=== PATIENT | female | born 1970 | race Caucasian/White ===

== ENCOUNTER 2024-08-08 09:32 | Emergency (ER) | payer OTHER, SELFPAY ==
[2024-08-08 09:58] VITALS: BP 99/56; PULSE 91; RESP 16; TEMP 36.4; O2SAT 96
--- NOTE | 2024-08-08 10:06 | PC.NURSE ---
in br to obtain ua spec.
--- NOTE | 2024-08-08 10:25 | ED.FEMALEGU ---
HPI - Female Genitourinary General Chief complaint: Urogenital-Female Stated complaint: Urine Irritation Time Seen by Provider: 08/08/24 10:26 Source: patient and RN notes reviewed Mode of arrival: ambulatory Limitations: no limitations History of Present Illness HPI Narrative: 54 year old female presents with concern for burning with urination, low back pain, nausea, cloudy urine, headache. She reports 4 days of symptoms. MD elicited complaint: UTI Related Data Home Medications Medication Instructions Recorded Confirmed Vitamin D 08/08/24 bupropion HCl 150 mg tablet,12 hr mg PO 08/08/24 sustained-release lisinopril 10 tablet 08/08/24 mg-hydrochlorothiazide 12.5 mg tablet mecobalamin (vitamin B12) 08/08/24 semaglutide 0.25 mg or 0.5 mg (2 mg subcut 08/08/24 mg/3 mL) subcutaneous pen injector (Ozempic) Allergies Allergy/AdvReac Type Severity Reaction Status Date / Time amlodipine Allergy Swelling Verified 08/08/24 10:36 Review of Systems Review of Systems: CONSTITUTIONAL: Reports malaise. Denies chills, sweats, or fever. CARDIOVASCULAR: Denies chest pain, palpitations, or edema. RESPIRATORY: Denies cough or dyspnea. GASTROINTESTINAL: Denies abdominal pain, vomiting, diarrhea. Reports nausea GENITOURINARY: Reports dysuria, cloudy urine suprapubic pressure. Reports flank pain. Denies hematuria. SKIN: Denies rash or itching. MUSCULOSKELETAL: Reports back pain All systems reviewed & are unremarkable except as noted in HPI and below PMFSH Comments At time of signature, agree with nursing past medical, surgical, social and family history. There is no relevant family history pertinent to the presenting complaint Exam Narrative: GENERAL: Well-appearing, well-nourished, and in no acute distress. HEAD: Normocephalic. EYES: PERRLA, conjunctivae clear. NECK: Supple. No lymphadenopathy CHEST: Clear to auscultation. No respiratory distress. HEART: Regular rate and rhythm. ABDOMEN: Soft, nontender upon palpation, nondistended, normal active bowel sounds, no palpable or pulsatile masses, no guarding. left CVA tenderness SKIN: Warm, dry, no rash. NEURO: Alert and oriented x3. PSYCH: Normal mood and affect Course Course Emergency Course: Patient is aware of diagnosis, understands and agrees to treatment plan. Anticipatory guidance given. Patient agrees to follow-up as directed and is aware of reasons to seek care at the emergency department. Portions of this record may have been created with voice recognition software Level of Care: Express Care Visit Vital Signs Vital signs: Vital Signs Temperature 97.6 F 08/08/24 09:58 Pulse Rate 91 08/08/24 09:58 Respiratory Rate 16 08/08/24 09:58 Blood Pressure 99/56 L 08/08/24 09:58 Pulse Oximetry 96 08/08/24 09:58 Oxygen Delivery Room Air 08/08/24 09:58 Temperature 97.6 F 08/08/24 09:58 Pulse Rate 91 08/08/24 09:58 Respiratory Rate 16 08/08/24 09:58 Blood Pressure 99/56 L 08/08/24 09:58 Pulse Oximetry 96 08/08/24 09:58 Oxygen Delivery Room Air 08/08/24 09:58 Reviewed. MDM - Female Genitourinary MDM Narrative Medical decision making narrative: Exam findings and UA show no acute concerns or changes; patient is non-toxic appearing and is in no distress. Patient is appropriate for outpatient treatment and follow-up. Differential Diagnosis Differential diagnosis: Likely urinary tract infection and cystitis Critical Care Time Critical Care Time Critical Care Time: No Discharge Plan Discharge Clinical Impression: Urinary tract infection Patient Disposition: Home, Self-Care Condition: Stable Instructions: Antibiotic Form, Urinary Tract Infection in Women (ED) Additional Instructions: We will send a urine culture to the lab; if the culture identifies an organism that the prescribed antibiotic will not treat, you will receive a phone call from an urgent care staff member an
[2024-08-08 10:41] LABS: EDUAAPPEAR Cloudy; EDUABILI Negative (Negative); EDUABLOOD 2+ (Negative); EDUACOLOR1 Yellow; EDUAGLUCOSE Negative (Negative); EDUAKETONE Negative (Negative); EDUALEUKO 3+ (Negative); EDUANITRATE Negative (Negative); EDUAPH 5.5; EDUAPROTEIN 2+ (Negative); EDUAUROBILI 0.2
== END 2024-08-08 10:33 | disposition home or self-care (01) ==
PROVIDERS: Emergency Provider Nurse Practitioner
DX: N39.0 Urinary tract infection, site not specified (principal); I10 Essential (primary) hypertension; E11.9 Type 2 diabetes mellitus without complications
CPT/HCPCS: 81003; 87086; 99203; G0463